=== PATIENT | male | born 1995 | race African-American/Black ===

== ENCOUNTER 2022-08-24 03:16 | Emergency (ER) | payer OTHER, SELFPAY ==
[2022-08-24] VITALS (7 sets, daily range): BP systolic 128–144; BP diastolic 86–96; PULSE 72–91; RESP 10–19; TEMP 36.4; O2SAT 98–100; BMI 62.3
[2022-08-24 03:42] LABS: Basophils Percent Auto 0.3 % (0.2-2.0); Eosinophils Absolute Auto 0.1 10^3/uL (0.0-0.7); Eosinophils Percent Auto 0.7 % (0.9-7.0); Hematocrit 38.9 % (42.0-54.0); Hemoglobin 13.2 g/dL (14.0-18.0); Immature Granulocytes Abs Auto 0.04 10^3/uL (0.00-0.03); Immature Granulocytes Pct Auto 0.4 % (0.0-0.5); Lymphocytes Absolute Auto 3.5 10^3/uL (1.2-3.8); Lymphocytes Percent Auto 34.2 % (20.5-60.0); Mean Corpuscular HGB Conc 33.9 g/dL (29.9-35.2); Mean Corpuscular Hemoglobin 29.5 pg (25.9-34.0); Mean Corpuscular Volume 86.8 fL (80.0-94.0); Mean Platelet Volume 11.3 fL (9.5-13.5); Monocytes Absolute Auto 0.7 10^3/uL (0.3-0.8); Monocytes Percent Auto 7.3 % (1.7-12.0); Neutrophils Absolute Auto 5.8 10^3/uL (1.4-6.5); Neutrophils Percent Auto 57.1 % (43.0-75.0); Platelet Count 242 10^3/uL (150-450); Red Blood Count 4.48 10^6/uL (4.70-6.10); Red Cell Distribution Width 12.2 % (11.0-15.0); White Blood Count 10.2 10^3/uL (4.0-11.0)
--- NOTE | 2022-08-24 03:56 | PC.NURSE ---
pt brought in via EMS from his home, states he took an unknown amount of ibuprofen 800mg around 11pm in an attempt to end his life. states a few hours later he realized that was not working so he attempted to cut his wrists. superficial bilateral self harm cuts to wrists, dried blood oberved with no active bleeding. patient states he tried to kill himself because he is just tired of living , tonight was triggered by a fight with his girlfriend. his girlfriend is the mother of his third child. he states he has been struggling with his mental health for years, history of several previous suicide attempts. states he is upset because he has been paying trial support and the mothers of his children are still not letting him see his children. states he can not afford a deployment manager to go to court and is just extremely upset that he can not see his children. at inital triage time patient is extremely upset, crying, moaning, and hyperventilating. this RN remained at bedside and assisted patient with deep breathing and patient eventually was able to slow breathing to a more regular rate and at this time is more capable of answering questions.
--- NOTE | 2022-08-24 04:01 | PC.NURSE ---
upon patients arrival poison control contacted by Felisha MCKNIGHT, poison control states care is supportive with minimal monitoring time of 6 hours post time of ingestion. dr shea notified.
[2022-08-24 04:13] LABS: Amphetamine Screen Urine NEGATIVE (NEGATIVE); Barbiturates Screen Urine NEGATIVE (NEGATIVE); Benzodiazepines Screen Urine NEGATIVE (NEGATIVE); Buprenorphine Screen Urine NEGATIVE (NEGATIVE); Cannabinoid Screen Urine POSITIVE (NEGATIVE); Cocaine Screen Urine NEGATIVE (NEGATIVE); Methadone Screen Urine NEGATIVE (NEGATIVE); Methamphetamines Screen Urine NEGATIVE (NEGATIVE); Opiate Screen Urine NEGATIVE (NEGATIVE); Oxycodone Screen Urine NEGATIVE (NEGATIVE); Phencyclidine Screen Urine NEGATIVE (NEGATIVE); Tricyclic Antidepressant Urine NEGATIVE (NEGATIVE)
[2022-08-24 04:13] LABS: Alanine Aminotransferase 71 U/L (16-63); Albumin Globulin Ratio 1.2; Albumin Level 4.2 g/dL (3.4-5.0); Alkaline Phosphatase 86 U/L (46-116); Anion Gap 15.1; Aspartate Amino Transferase 157 U/L (15-37); Bilirubin Total 0.3 mg/dL (0.2-1.0); Calcium 9.1 mg/dL (8.5-10.1); Carbon Dioxide 23.7 mmol/L (21.0-32.0); Chloride 104 mmol/L (98-107); Estimated GFR (African America >60 (>=60); Estimated GFR (Non-African Ame >60 (>=60); Globulin 3.6 g/dL; Glucose 87 mg/dL (74-106); Potassium 3.8 mmol/L (3.5-5.1); Salicylate 4.1 mg/dL (<=19.9); Sodium 139 mmol/L (136-145); Total Protein 7.8 g/dL (6.4-8.2)
[2022-08-24 04:14] LABS: Acetaminophen <2.0 ug/mL (10.0-30.0); Ethanol <3 mg/dL
[2022-08-24] MEDS: FAMOTIDINE/PF 20 MG/2 ML VIAL IV (04:17)
[2022-08-24] MEDS: LORAZEPAM 2 MG/ML 1 ML VIAL 1 MG IV (04:17)
[2022-08-24] MEDS: ONDANSETRON PF 4 MG/2 ML VIAL IV (04:17)
[2022-08-24] MEDS: 0.9 % SODIUM CHLORIDE 1,000 ML 1000 ML IV (04:17)
--- NOTE | 2022-08-24 04:39 | ED_ITS ---
HPI - Psych General Chief Complaint: Altered Mental Status Stated Complaint: suicidal Time Seen by Provider: 08/24/22 03:34 Source: Reports patient Source comment: EMS Mode of arrival: ambulance Limitations: Reports no limitations History of Present Illness HPI Narrative: This 27-year-old male is brought to the emergency department by EMS from home after he intentionally took an overdose of ibuprofen and cut his wrists. The patient admits that this was a suicide attempt. Upon arrival he is extremely upset, hyperventilating, crying. After a brief time he was able to calm down and was cooperative and forthcoming about his current situation. The patient states that he has 3 children with 3 different women. He has an 8-year-old daughter who he never gets to see. He states that his parents often see her and have a good relationship with her but they don't let him know when she is visiting them. He states that her mother tells him that it is not her job to let him know what is going on in his daughter's life. His 8-year-old daughter recently won an academic award and he found out about her achieving this award when seeing one of her teachers at [facility] [employer]. He states he took a personal day from his job to go to her award ceremony. Besides that on Father's Day his 8-year-old daughter was with her mothers current boyfriend's family and he was not allowed to see her. He does pain child support for her and provides her with clothes, and things she needs for school and her sporting events. He feels that his daughter thinks that he doesnt love her or care about her. The patient also has a 4-year-old daughter who he has not seen in a year and a half. He states that she has an eye pad and he tries to text her from time to time but her mother has blocked him on the Ipad. The patient also pays child support for this child. He doesnt think she even knows who he is anymore. The patient lives with the mother of his 9-month-old son. What triggered the event hiren was that he was supposed to be getting up for work around 6 AM and the mother of the 9-month-old with whom he lives was working in [employer] and was supposed to be home around 9 PM. She called him stating that she wanted to go to the gym after work. He expected that she would be home around 9:30 or 10 PM at that point and he could go to bed. She did not come home until after 12:30 AM and refused to answer his phone calls. He was ultimately able to get his son to sleep and in the meantime took an intentional overdose of ibuprofen. When his son's mother got home they had an argument and she called him a bum is really hurting his feelings because he is working and supporting all 3 children and her. He states that the entire time they have been together she has only work for one month and she is threatening to take him to court for child support. Does not feel any better this toward her for the disagreement that they had tonight but feels that the situation with these other 2 children are building up and driving him insane The patient has been admitted psychiatrically in the past several times and has been on psychiatric medications but is not currently on any psychiatric medications. He states that he is working as hard as he can to support his children and has given up many things in his own life to provide for them and be current with his child support. He states that these situations are driving him insane, he is in a deep dark place that he does not feel he can get out of and he cannot live like this anymore. He denies that he would ever injure any of his children and he is not violent towards their mother's. With regard to his overdose, he states he does not know how many ibuprofen he took. He denies any abdominal pain nausea or vomiting. MD complaint: suicidal ideation Duration: getting worse History of same: Yes Relieving factors: none Exacerbating factors: other If self harm: admits thoughts of self harm, has acted on plan, intentional overdose and self-inflicted trauma (Superficial lacerations to both anterior her wrists) Related Data Home Medications Medication Instructions Recorded Confirmed No Known Home Medications 08/24/22 08/24/22 Allergies Allergy/AdvReac Type Severity Reaction Status Date / Time Sulfa (Sulfonamide Allergy Unknown Verified 08/24/22 03:28 Antibiotics) Review of Systems ROS Status of ROS 10 or more systems reviewed and unremarkable except as noted in history and below PFSH PFSH Social History Smoking status: Current every day smoker Exam Constitutional Vital Signs - 24 hr 08/24/22 03:18 Temperature 97.6 F Pulse Rate [Monitor] 82 Respiratory Rate 18 Blood Pressure [Right Arm] 144/96 H Pulse Oximetry 99 Oxygen Delivery Method Room Air Documenting provider has reviewed patient's vital signs: yes General appearance: anxious (Tearful, hyperventilating, sobbing, inconsolable, anxious on arrival) Orientation/consciousness: Yes oriented to person, Yes oriented to place and Yes oriented to time [facility] Common normals: normocephalic, head/scalp atraumatic and oropharynx normal Head and scalp: normal to inspection Chest Common normals: inspection of chest normal Respiratory Common normals: normal respiratory effort, no retractions, no use of accessory muscles and clear to auscultation bilaterally Cardio Common normals: regular rate, regular rhythm, S1 normal heart sound, S2 normal heart sound, no clicks, no murmurs and no rub GI Common normals: Normal to inspection, nondistended, normoactive bowel sounds present, soft to palpation and non-tender Extremity General: normal exam except as noted (Superficial self-inflicted abrasions to both anterior wrists, no bleeding) Neuro Common normals: oriented x3, CN's II-XII intact bilaterally, moves all extremities, no focal motor deficits and no sensory deficits noted Psych Common normals: mental status grossly normal, thought process normal, denies homicidal ideation and denies suicidal ideation (Patient states he feels like he is going insane and has ongoing suicidal th) Mood and affect: depressed mood, anxious, sad and tearful Thought process: normal thought process Thought content: normal thought content and suicidality Attention/concentration: attention grossly intact Memory/cognition: memory grossly intact Insight: fair Judgement: fair Course Vital Signs Vital signs: Vital Signs Temperature 97.6 F 08/24/22 03:18 Pulse Rate 82 08/24/22 03:18 Respiratory Rate 18 08/24/22 03:18 Blood Pressure 144/96 H 08/24/22 03:18 Pulse Oximetry 99 08/24/22 03:18 Oxygen Delivery Method Room Air 08/24/22 03:18 Temperature 97.6 F 08/24/22 03:18 Pulse Rate 82 08/24/22 03:18 Respiratory Rate 18 08/24/22 03:18 Blood Pressure 144/96 H 08/24/22 03:18 Pulse Oximetry 99 08/24/22 03:18 Oxygen Delivery Method Room Air 08/24/22 03:18 MDM - Psych MDM Narrative Medical decision making narrative: This 27-year-old male presents for evaluation of suicidal ideation and suicide attempt with intentional overdose of ibuprofen. Please see my HPI for the details regarding the circumstances of this patient's intentional overdose/suicide attempt and intentional cutting of his wrist. In brief he took an overdose of an unknown quantity of ibuprofen around 11 PM. This is mother called EMS upon arriving home and he was brought emergency department. Upon arrival he was extremely agitated, tearful, hyperveentilating. He was able to calm down and provide a history of recent events. An EKG done upon arrival was sinus rhythm with J-point elevation but otherwise normal. [place] poison control was consults it about the overdose and recommended supportive care and monitoring for 6 hours. He was given IV fluids, milligram of Ativan, Zofran and Pepcid. He is medically cleared for MHP evaluation. The only positive finding on his medical clearance evaluation was marijuana on his urine toxicology. He was pink slipped for his depression and suicide attempt this morning. Differential Diagnosis Differential diagnosis: Likely suicidal ideation and depression Lab Data Attestation: I reviewed the patient's lab results. Lab results narrative: Aspirin and Tylenol levels are normal, alcohol is negative, he has normal electrolytes, normal white count, urine toxicology is positive for THC otherwise normal Labs: Lab Results 08/24/22 08/24/22 Range/Units 03:25 03:55 WBC 10.2 (4.0-11.0) 10^3/uL RBC 4.48 L (4.70-6.10) 10^6/uL Hgb 13.2 L (14.0-18.0) g/dL Hct 38.9 L (42.0-54.0) % MCV 86.8 (80.0-94.0) fL MCH 29.5 (25.9-34.0) pg MCHC 33.9 (29.9-35.2) g/dL RDW 12.2 (11.0-15.0) % Plt Count 242 (150-450) 10^3/uL MPV 11.3 (9.5-13.5) fL Neut % (Auto) 57.1 (43.0-75.0) % Lymph % (Auto) 34.2 (20.5-60.0) % [place] % (Auto) 7.3 (1.7-12.0) % Eos % (Auto) 0.7 L (0.9-7.0) % Baso % (Auto) 0.3 (0.2-2.0) % Neut # (Auto) 5.8 (1.4-6.5) 10^3/uL Lymph # (Auto) 3.5 (1.2-3.8) 10^3/uL [place] # (Auto) 0.7 (0.3-0.8) 10^3/uL Eos # (Auto) 0.1 (0.0-0.7) 10^3/uL Baso # (Auto) 0.0 (0.0-0.1) 10^3/uL Abs Immat Gran (auto) 0.04 H (0.00-0.03) 10^3/uL Imm/Tot Granulo (auto) 0.4 (0.0-0.5) % Sodium 139 (136-145) mmol/L Potassium 3.8 (3.5-5.1) mmol/L Chloride 104 (98-107) mmol/L Carbon Dioxide 23.7 (21.0-32.0) mmol/L Anion Gap 15.1 BUN 11.0 (7.0-18.0) mg/dL Creatinine 1.10 (0.70-1.30) mg/dL Est GFR ( Amer) >60 (>=60) Est GFR (Non-Af Amer) >60 (>=60) BUN/Creatinine Ratio 10.0 Glucose 87 (74-106) mg/dL Calcium 9.1 (8.5-10.1) mg/dL Total Bilirubin 0.3 (0.2-1.0) mg/dL AST 157 H (15-37) U/L ALT 71 H (16-63) U/L Alkaline Phosphatase 86 (46-116) U/L Total Protein 7.8 (6.4-8.2) g/dL Albumin 4.2 (3.4-5.0) g/dL Globulin 3.6 g/dL Albumin/Globulin Ratio 1.2 Salicylates 4.1 (<=19.9) mg/dL Urine Opiates Screen Negative (NEGATIVE) Ur Buprenorphine Scrn Negative (NEGATIVE) Ur Oxycodone Screen Negative (NEGATIVE) Urine Methadone Screen Negative (NEGATIVE) Ur Propoxyphene Screen Negative (NEGATIVE) Acetaminophen <2.0 L (10.0-30.0) ug/mL Ur Barbiturates Screen Negative (NEGATIVE) U Tricyclic Antidepress Negative (NEGATIVE) Ur Phencyclidine Scrn Negative (NEGATIVE) Ur Amphetamines Screen Negative (NEGATIVE) U Methamphetamines Scrn Negative (NEGATIVE) U Benzodiazepines Scrn Negative (NEGATIVE) Urine Cocaine Screen Negative (NEGATIVE) U Cannabinoids Screen Positive A (NEGATIVE) Ethanol Quant <3 mg/dL ECG Data Attestation: I personally reviewed and interpreted this ECG as follows: (Sinus rhythm at 80 beats for minute, early repolarization, normal axis, no acute ST segment elevation besides J point elevation or T-wave inversion) Critical Care Time Critical Care Time Critical Care Time: Yes Total Critical Care Time: 40 Attestation: I personally evaluated and treated this patient Discharge Plan Discharge Chief Complaint: Altered Mental Status Clinical Impression: Intentional overdose, Depression with suicidal ideation, Depression Prescriptions / Home Meds: No Action No Known Home Medications Referrals: Physician,Non-Staff, [Primary Care Provider] - 1 week
--- NOTE | 2022-08-24 05:02 | PC.NURSE ---
patient states hiren he began to get upset when his girlfriend and mother of his third child was at work and was supposed to be home around 9pm. she called him to say she was going to go to the gym after work, he asked that she be home within a decent time because he has to be up by 6am for work and was home alone with their 9month old son. patient states his girlfriend stopped answering his calls and did not show up until 1230. he states before his girlfriend got home he began to become increasingly upset and once he was able to put his son to sleep he then took the ibuprofen. he states he wanted to kill himself because dealing with all of the stress from his childrens mothers and just life has been driving me insane . patient then stated i have just been in such a deep dark place and i cant get out of it . he states that he has 2 older children also that he has not been able to see for a significant amount of time even though he has been paying child support and is up to date. states his parents have been able to see his oldest child but they don't tell him when they are seeing her because they don't want to get involved, he states he is upset that his parents don't seem to care or want to help him see his child either. he is also upset stating his middle child who he also pays child support for he has not been able to see, he states his child has an ipad and he tries to message the child on it but the bruno mother blocked his number. he states he has a history of previous suicide attempts with the most recent one year ago, history of self harm, and history of psychiatric admissions. states he is not currently taking any prescription medications including no psychiatric medications.
--- NOTE | 2022-08-24 05:25 | ECG_ITS ---
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
--- NOTE | 2022-08-24 07:12 | ED_ITS ---
HPI - General Adult General Chief complaint: Altered Mental Status Stated complaint: suicidal Time Seen by Provider: 08/24/22 03:34 Source: patient Source information: EMS Mode of arrival: ambulance Limitations: no limitations Related Data Home Medications Medication Instructions Recorded Confirmed No Known Home Medications 08/24/22 08/24/22 Allergies Allergy/AdvReac Type Severity Reaction Status Date / Time Sulfa (Sulfonamide Allergy Unknown Verified 08/24/22 03:28 Antibiotics) PFSH PFSH Social History Smoking status: Current every day smoker Exam Constitutional Vital Signs - 24 hr 08/24/22 03:18 08/24/22 06:41 08/24/22 03:22 Temperature 97.6 F Pulse Rate 72 76 Pulse Rate [Monitor] 82 Respiratory Rate 18 10 L Blood Pressure Blood Pressure [Right Arm] 144/96 H Pulse Oximetry 99 98 100 Oxygen Delivery Method Room Air 08/24/22 03:24 08/24/22 03:25 08/24/22 06:36 Temperature Pulse Rate 91 H Pulse Rate [Monitor] Respiratory Rate 19 Blood Pressure 144/96 H 129/87 H Blood Pressure [Right Arm] Pulse Oximetry Oxygen Delivery Method 08/24/22 07:55 Temperature Pulse Rate Pulse Rate [Monitor] 84 Respiratory Rate 16 Blood Pressure Blood Pressure [Right Arm] 128/86 H Pulse Oximetry 100 Oxygen Delivery Method Room Air Course Vital Signs Vital signs: Vital Signs Temperature 97.6 F 08/24/22 03:18 Pulse Rate 82 08/24/22 03:18 Respiratory Rate 18 08/24/22 03:18 Blood Pressure 144/96 H 08/24/22 03:18 Pulse Oximetry 99 08/24/22 03:18 Oxygen Delivery Method Room Air 08/24/22 03:18 Temperature 97.6 F 08/24/22 03:18 Pulse Rate 84 08/24/22 07:55 Respiratory Rate 16 08/24/22 07:55 Blood Pressure 128/86 H 08/24/22 07:55 Pulse Oximetry 100 08/24/22 07:55 Oxygen Delivery Method Room Air 08/24/22 07:55 Medical Decision Making Lab Data Labs: Lab Results 08/24/22 08/24/22 Range/Units 03:25 03:55 WBC 10.2 (4.0-11.0) 10^3/uL RBC 4.48 L (4.70-6.10) 10^6/uL Hgb 13.2 L (14.0-18.0) g/dL Hct 38.9 L (42.0-54.0) % MCV 86.8 (80.0-94.0) fL MCH 29.5 (25.9-34.0) pg MCHC 33.9 (29.9-35.2) g/dL RDW 12.2 (11.0-15.0) % Plt Count 242 (150-450) 10^3/uL MPV 11.3 (9.5-13.5) fL Neut % (Auto) 57.1 (43.0-75.0) % Lymph % (Auto) 34.2 (20.5-60.0) % [place] % (Auto) 7.3 (1.7-12.0) % Eos % (Auto) 0.7 L (0.9-7.0) % Baso % (Auto) 0.3 (0.2-2.0) % Neut # (Auto) 5.8 (1.4-6.5) 10^3/uL Lymph # (Auto) 3.5 (1.2-3.8) 10^3/uL [place] # (Auto) 0.7 (0.3-0.8) 10^3/uL Eos # (Auto) 0.1 (0.0-0.7) 10^3/uL Baso # (Auto) 0.0 (0.0-0.1) 10^3/uL Abs Immat Gran (auto) 0.04 H (0.00-0.03) 10^3/uL Imm/Tot Granulo (auto) 0.4 (0.0-0.5) % Sodium 139 (136-145) mmol/L Potassium 3.8 (3.5-5.1) mmol/L Chloride 104 (98-107) mmol/L Carbon Dioxide 23.7 (21.0-32.0) mmol/L Anion Gap 15.1 BUN 11.0 (7.0-18.0) mg/dL Creatinine 1.10 (0.70-1.30) mg/dL Est GFR ( Amer) >60 (>=60) Est GFR (Non-Af Amer) >60 (>=60) BUN/Creatinine Ratio 10.0 Glucose 87 (74-106) mg/dL Calcium 9.1 (8.5-10.1) mg/dL Total Bilirubin 0.3 (0.2-1.0) mg/dL AST 157 H (15-37) U/L ALT 71 H (16-63) U/L Alkaline Phosphatase 86 (46-116) U/L Total Protein 7.8 (6.4-8.2) g/dL Albumin 4.2 (3.4-5.0) g/dL Globulin 3.6 g/dL Albumin/Globulin Ratio 1.2 Salicylates 4.1 (<=19.9) mg/dL Urine Opiates Screen Negative (NEGATIVE) Ur Buprenorphine Scrn Negative (NEGATIVE) Ur Oxycodone Screen Negative (NEGATIVE) Urine Methadone Screen Negative (NEGATIVE) Ur Propoxyphene Screen Negative (NEGATIVE) Acetaminophen <2.0 L (10.0-30.0) ug/mL Ur Barbiturates Screen Negative (NEGATIVE) U Tricyclic Antidepress Negative (NEGATIVE) Ur Phencyclidine Scrn Negative (NEGATIVE) Ur Amphetamines Screen Negative (NEGATIVE) U Methamphetamines Scrn Negative (NEGATIVE) U Benzodiazepines Scrn Negative (NEGATIVE) Urine Cocaine Screen Negative (NEGATIVE) U Cannabinoids Screen Positive A (NEGATIVE) Ethanol Quant <3 mg/dL Discharge Plan Discharge Chief Complaint: Altered Mental Status Clinical Impression: Intentional overdose, Depression with suicidal ideation, Depression Patient Disposition: [facility] Time of Disposition Decision: 07:12 Discharge Location: [facility] Mode of Transportation: Mental Health Car Discharge Date/Time: 08/24/22 08:02
== END 2022-08-24 08:02 ==
PROVIDERS: Emergency Provider Emergency Medicine
DX: T39.312A Poisoning by propionic acid derivatives, intentional self-harm, initial encounter (principal); F32.A Depression, unspecified; S60.812A Abrasion of left wrist, initial encounter; S60.811A Abrasion of right wrist, initial encounter; X78.9XXA Intentional self-harm by unspecified sharp object, initial encounter; F17.210 Nicotine dependence, cigarettes, uncomplicated
CPT/HCPCS: 36415; 80053; 80179; 80307; 80320; 80329; 85025; 93005; 96374; 96375; 99285